=== PATIENT | male | born 1960 | race Caucasian/White ===

== ENCOUNTER 2017-01-22 18:17 | Emergency (ER) | payer SELFPAY ==
[~2017-01-22] VITALS: Ht 175.3 cm; Wt 65.0 kg
[~2017-01-22 18:17] MED LIST: ATRITAB PO; CHOLESTEROL MED PO; GLUCTAB PO; PENI500T PO; TYLE3 PO
[2017-01-22 18:18] VITALS: BP 139/88; PULSE 74; RESP 16; TEMP 98; O2SAT 97
--- NOTE | 2017-01-22 18:35 | PD ---
HPI . Spider bite Chief Complaint: Skin Problem Time Seen by Provider: 18:25 Travel History International Travel<30 days: No Contact w/Intl Traveler<30days: No Traveled to known affect area: No History of Present Illness HPI Patient presents stating that he is fairly certain that he was bitten by a spider 4 days ago. He did not see a spider. He states that he had killed the spider the day before but did not see one on the day that he thinks that he was bitten. Nonetheless he comes in with a painful lesion on his right buttock. He states that it is the size of a $0.50 piece. He states that he has been cleaning it with rubbing alcohol. Now it itches and feels irritated when his clothing rubs against it. He rates his pain as 8/10. PFSH Past Medical History Cardiovascular Problems: No Diminished Hearing: No Genitourinary: Yes Kidney Stones: Yes Musculoskeletal: No Neurologic: No Reproductive: No Respiratory: No Past Surgical History Abdominal Surgery: No Cardiac Surgery: No Ear Surgery: No Endocrine Surgery: No Eye Surgery: No Genitourinary Surgery: No Gynecologic Surgery: No Oral Surgery: No Thoracic Surgery: No Social History Alcohol Use: No Tobacco Use: No Substance Use: No Allergies-Medications (Allergen,Severity, Reaction): Coded Allergies: No Known Allergies (Verified , 06/29/10) Reported Meds & Prescriptions Reported Meds & Active Scripts Active Pen Vk (Penicillin V Potassium) 500 Mg Tab 500 Mg PO Q6 Tylenol #3 (Acetaminophen/Codeine Phosphate) 300 Mg/30 Mg Tab 1 Tab PO Q6HPRN FOR PAIN Reported [Cholesterol Med] 600 Mg PO BID [Atripla] 1 Tab PO DAILY Glucophage (Metformin HCl) 500 Mg Tab 500 Mg PO BID Review of Systems Except as stated in HPI: all other systems reviewed are Neg General / Constitutional: No: Fever, Chills Skin: Positive Lesions Physical Exam Narrative GENERAL: Awake and alert and in no acute distress. SKIN: Warm and dry. There is a lesion on his right lateral buttock which is less than the size of a dime. There is no warmth or fluctuance. The surrounding skin looks normal. The lesion has a scaly appearance. HEAD: Atraumatic. Normocephalic. EYES: Pupils equal and round. NECK: Trachea midline. CARDIOVASCULAR: Regular rate and rhythm. RESPIRATORY: No accessory muscle use. MUSCULOSKELETAL: No obvious deformities. No edema. NEUROLOGICAL: Awake and alert. No obvious cranial nerve deficits. Motor grossly within normal limits. Normal speech. PSYCHIATRIC: Appropriate mood and affect; insight and judgment normal. Data Data Last Documented VS Vital Signs Date Time Temp Pulse Resp B/P Pulse Ox O2 Delivery O2 Flow Rate FiO2 01/22/17 18:18 98.0 74 16 139/88 97 Room Air MDM Medical Decision Making Medical Screen Exam Complete: Yes Emergency Medical Condition: Yes Differential Diagnosis My differential diagnosis of an insect bite includes not limited to local allergic reaction, systemic allergic reaction, cellulitis, abscess, exposure to toxin. Narrative Course This patient presents with a lesion to his right buttock. He believes that it is a spider bite. The skin does not look infected. It appears to be healing well. It does look very dry. I have instructed the patient to stop using rubbing alcohol. Start cleaning it with soap and water. Apply Neosporin ointment and cover lightly with Band-Aid. Benadryl as needed for itching. Diagnosis Primary Impression: Insect bite Qualified Code: W57.XXXA - Insect bite, initial encounter Additional Instructions: Wash daily with soap and water. Apply Neosporin ointment. Take Benadryl, 2 every 4 hours as needed for itching. Disposition: 01 DISCHARGE HOME Condition: Stable Ciarra Linares MD January 22, 2017 18:35
== END 2017-01-22 18:59 | disposition home or self-care (01) ==
LOC: NEPD 18:17
DX: S30.860A Insect bite (nonvenomous) of lower back and pelvis, initial encounter (principal); W57.XXXA Bitten or stung by nonvenomous insect and other nonvenomous arthropods, initial encounter; Y92.009 Unspecified place in unspecified non-institutional (private) residence as the place of occurrence of the external cause
CPT/HCPCS: 99282

== ENCOUNTER 2017-05-13 08:45 | Emergency (ER) | payer SELFPAY ==
[~2017-05-13] VITALS: Ht 175.3 cm; Wt 72.0 kg
[2017-05-13 08:48] VITALS: BP 142/71; PULSE 65; RESP 15; TEMP 98.8; O2SAT 98
[2017-05-13] MEDS ORDERED: OFLO1SOL LEFT EAR (09:15)
--- NOTE | 2017-05-13 09:15 | PD ---
HPI Chief Complaint: ENT Complaint Time Seen by Provider: 09:11 Travel History International Travel<30 days: No Contact w/Intl Traveler<30days: No Traveled to known affect area: No History of Present Illness HPI 56-year-old male presents emergency Department with complaint of bilateral ear cerumen impactions times one week. States he's been having a pain in both of his ears for about the last 3 days. Reports decreased hearing. Denies fever, vomiting. Denies recent illness. Has been using hydrogen peroxide in both ears for symptom management. No known allergies. No other medical complaints. Symptoms are mild in severity. No other modifying factors or associated signs and symptoms. PFSH Past Medical History Cardiovascular Problems: No Diminished Hearing: No Genitourinary: Yes Kidney Stones: Yes Musculoskeletal: No Neurologic: No Reproductive: No Respiratory: No ?: Not Past Surgical History Abdominal Surgery: No Cardiac Surgery: No Ear Surgery: No Endocrine Surgery: No Eye Surgery: No Genitourinary Surgery: No Gynecologic Surgery: No Oral Surgery: No Thoracic Surgery: No Social History Alcohol Use: No Tobacco Use: No Substance Use: No Allergies-Medications (Allergen,Severity, Reaction): Coded Allergies: No Known Allergies (Verified , 05/13/17) Reported Meds & Prescriptions Reported Meds & Active Scripts Active Floxin Otic (Ofloxacin Otic) 0.3 % Oksana 10 Drop LEFT EAR DAILY 7 Days Review of Systems Except as stated in HPI: all other systems reviewed are Neg Physical Exam Narrative GENERAL: Well-nourished, well-developed male patient, in no acute distress; afebrile, nontoxic-appearing SKIN: Warm and dry. No rash. HEAD: Atraumatic. Normocephalic. EYES: Pupils equal and round. No scleral icterus. No injection or drainage. EARS: Bilateral pinnae and right ear canal within normal limits. Left ear canal is mildly edematous and erythematous. I'm unable to visualize both tympanic membranes secondary to bilateral cerumen impaction. After removal of symptoms impaction of the right ear tympanic membrane is without erythema, dullness, loss of landmarks, perforation. ENT: Mucosa pink and moist. Airway patent. NECK: Trachea midline. No lymphadenopathy. CARDIOVASCULAR: Regular rate and rhythm. No murmur appreciated. RESPIRATORY: No accessory muscle use. Clear to auscultation. Breath sounds equal bilaterally. GASTROINTESTINAL: Flat. MUSCULOSKELETAL: No obvious deformities. No clubbing. No cyanosis. No edema. NEUROLOGICAL: Awake and alert. Oriented 3. No obvious cranial nerve deficits. Motor grossly within normal limits. Normal speech. Moves all extremities. 5/5 strength to all extremities. PSYCHIATRIC: Appropriate mood and affect; insight and judgment normal. Data Data Last Documented VS Vital Signs Date Time Temp Pulse Resp B/P (MAP) Pulse Ox O2 Delivery O2 Flow Rate FiO2 05/13/17 09:18 05/13/17 08:48 98.8 65 15 98 [facility] Medical Decision Making Medical Screen Exam Complete: Yes Emergency Medical Condition: Yes Medical Record Reviewed: Yes Differential Diagnosis Cerumen impaction, foreign body, otitis media, otitis externa Narrative Course 56-year-old male physical exam consistent with bilateral impacted cerumen and left otitis externa. See my procedure note for cerumen disimpaction. Patient is afebrile and nontoxic-appearing. Denies fever, vomiting. Denies recent illness. Floxin eardrops prescribed for home. Instructed patient to follow up with primary care provider. Patient verbalizes understanding and agreement with treatment plan. Patient is medically cleared and stable for discharge. Discussed reasons to return to the emergency department. Patient agrees with treatment plan. The patients vital signs are stable and the patient is stable for outpatient follow-up and treatment. Patient discharged home, stable and in no acute distress. Procedures Procedure Narrative Cerumen disimpaction of both ears: An ear curet was used to disimpact the right ear and some wax from the left ear. Left ear was not completely disimpacted. Patient tolerated well. Diagnosis Primary Impression: Left otitis externa Qualified Codes: H60.92 - Unspecified otitis externa, left ear Additional Impression: Impacted cerumen of right ear Referrals: [facility] Primary Care Physician Patient Instructions: Cerumen Impaction (ED), General Instructions, Otitis Externa (ED) Additional Instructions: Take antibiotics as prescribed and complete full course Ibuprofen or Tylenol as directed and as needed to reduce pain and fever [id number] antihistamines or decongestants as directed and as needed for symptom management Avoid getting water in the ears Do not put anything in the ears; including Q-tips Follow-up with primary care provider Return to the emergency department immediately with worsening of symptoms Med/Other Pt SpecificInfo: Prescription(s) given Scripts Ofloxacin Otic (Floxin Otic) 0.3 % Oksana 10 DROP LEFT EAR DAILY for Infection for 7 Days, #1 BOTTLE 0 Refills Prov: Cris Gómez 05/13/17 Disposition: 01 DISCHARGE HOME Condition: Stable Cris Gómez May 13, 2017 09:15
== END 2017-05-13 09:29 | disposition home or self-care (01) ==
LOC: NEPK 08:45
DX: H60.92 Unspecified otitis externa, left ear (principal); H61.21 Impacted cerumen, right ear
CPT/HCPCS: 69210